=== PATIENT | male | born 1975 | race Caucasian/White ===

== ENCOUNTER 2017-02-12 12:31 | Day surgery (SDC) | payer OTHER ==
[2017-02-12] MEDS ORDERED: Bupivacaine 0.25% 10 ML SDV ONE (13:01)
[2017-02-12] MEDS ORDERED: Propofol 200 MG/20 ML SDV ONE (13:24)
[2017-02-12] MEDS ORDERED: Midazolam 1 MG/ML 2 ML SDV ONE (13:24)
[2017-02-12] MEDS ORDERED: fentaNYL 100 MCG/2 ML SDV ONE (13:24)
--- NOTE | 2017-02-12 13:28 | PCM.PREANE ---
Preanesthetic Assessment - Anesthesia/Transfusion/Family Hx Anesthesia History: Prior Anesthesia Without Reaction Family History of Anesthesia Reaction: No Transfusion History: No Prior Transfusion(s) - Review of Systems General: No Symptoms Pulmonary: No Symptoms Cardiovascular: No Symptoms Gastrointestinal: No Symptoms Neurological: No Symptoms Other: Reports: None - Physical Assessment NPO Status Date: 02/12/17 NPO Status Time: 05:30 O2 Sat by Pulse Oximetry: 100 Respiratory Rate: 16 Vital Signs: Last Vital Signs Temp 36.4 C 02/12/17 12:44 Pulse 64 02/12/17 12:44 Resp 16 02/12/17 12:44 BP 136/71 02/12/17 12:44 Pulse Ox 100 02/12/17 12:44 Height: 1.79 m Weight: 80.739 kg ASA Class: 2 Mental Status: Alert & Oriented x3 Dentition: Reports: Dentures (full uper) ROM/Head Extension: Full Lungs: Clear to Auscultation, Normal Respiratory Effort Cardiovascular: Regular Rate, Regular Rhythm - Allergies Allergies/Adverse Reactions: Allergies Allergy/AdvReac Type Severity Reaction Status Date / Time No Known Allergies Allergy Verified 02/12/17 10:52 - Anesthesia Plan Pre-Op Medication Ordered: None - Acknowledgements Anesthesia Type Planned: General Anesthesia Pt an Appropriate Candidate for the Planned Anesthesia: Yes Alternatives and Risks of Anesthesia Discussed w Pt/Guardian: Yes Pt/Guardian Understands and Agrees with Anesthesia Plan: Yes PreAnesthesia Questionnaire HEENT History: Reports: Hard of Hearing, Other (See Below) Other HEENT History: has upper denture, hard of hearing in left ear Musculoskeletal History: Reports: Fracture Other Musculoskeletal History: hx of fx left knee and wrist - Past Surgical History Musculoskeletal Surgical History: Reports: Other (See Below) Other Musculoskeletal Surgeries/Procedures:: knee surgery (no hardware) - SUBSTANCE USE Smoking Status *Q: Current Every Day Smoker Tobacco Use Within Last Twelve Months: Cigarettes Recreational Drug Use History: No - HOME MEDS Home Medications: Home Meds Hydrocodone/Acetaminophen [[place] 5-325] 1 tab PO Q4H PRN 02/12/17 [History] - CURRENT (IN HOUSE) MEDS Current Meds: Current Medications Discontinued Medications Bupivacaine HCl (Sensorcaine-Mpf 0.25%) Confirm Administered Dose 20 ml .ROUTE .STK-MED ONE Stop: 02/12/17 13:02 Fentanyl (Sublimaze) Confirm Administered Dose 100 mcg .ROUTE .STK-MED ONE Stop: 02/12/17 13:25 Midazolam HCl (Versed 1 Mg/Ml) Confirm Administered Dose 2 mg .ROUTE .STK-MED ONE Stop: 02/12/17 13:25 Propofol (Diprivan 20 Ml) Confirm Administered Dose 200 mg .ROUTE .STK-MED ONE Stop: 02/12/17 13:25
[2017-02-12] MEDS ORDERED: Rocuronium 10 MG/ML 10 ML Syringe ONE (13:43)
[2017-02-12] MEDS ORDERED: Succinylcholine/Normal Saline 200 MG/10 ML Syringe ONE (13:43)
[2017-02-12] MEDS ORDERED: Dexamethasone 4 MG/ML 5 ML MDV ONE (13:54)
[2017-02-12] MEDS ORDERED: Ondansetron 4 MG/2 ML SDV ONE (13:54)
[2017-02-12] MEDS ORDERED: fentaNYL 100 MCG/2 ML SDV IVPUSH PRN (14:28)
--- NOTE | 2017-02-12 15:50 | PCM.POSTAN ---
POST ANESTHESIA ASSESSMENT - MENTAL STATUS Mental Status: Alert - VITAL SIGNS Pulse Rate: 72 SaO2: 97 Resp Rate: 16 Blood Pressure: 134/72 - RESPIRATORY Respiratory Status: Respiratory Rate WNL, Airway Patent, O2 Saturation Stable - CARDIOVASCULAR CV Status: Pulse Rate WNL, Blood Pressure Stable - GASTROINTESTINAL GI Status: No Symptoms - PAIN Pain Score: 2 - POST OP HYDRATION Hydration Status: Adequate & Stable
--- NOTE | 2017-02-12 16:15 | PCM48HPAN ---
Post Anesthesia Note - EVALUATION WITHIN 48HRS OF ANESTHETIC Vital Signs in Normal Range: Yes Patient Participated in Evaluation: Yes Respiratory Function Stable: Yes Airway Patent: Yes Cardiovascular Function Stable: Yes Hydration Status Stable: Yes Pain Control Satisfactory: Yes Nausea and Vomiting Control Satisfactory: Yes Mental Status Recovered: Yes
[2017-02-13] MEDS ORDERED: ceFAZolin 2 GM in Premix Bag 1 BAG IV ONE (09:50)
--- NOTE | 2017-02-15 09:54 | PCM.OPNOTE ---
- General Post-Op/Procedure Note Date of Surgery/Procedure: 02/12/17 Operative Procedure(s): open reduction internal fixation of the right index finger middle phalanx fracture Pre Op Diagnosis: right index finger middle phalanx fracture Post-Op Diagnosis: Same Anesthesia Technique: General LMA, Local Primary Surgeon: Ragini Garcia Buttermaker Continuous Churn: Clarita Pineda Complications: None Condition: Good
--- NOTE | 2017-02-15 17:04 | OR ---
SURGEON: BRIANNA HYATT MD DATE OF PROCEDURE: 02/12/2017 PREOPERATIVE DIAGNOSIS: Right index finger middle phalanx fracture, open. POSTOPERATIVE DIAGNOSIS: Right index finger middle phalanx fracture, open. PROCEDURE: Open reduction and internal fixation of the right index finger middle phalanx fracture. GAMES MANAGER: JUAN PABLO Mitchell. Reason for real estate assistant was assistance with finger retraction. ANESTHESIA: General LMA with local. INDICATIONS: Mr. Arriaga is a 42-year-old gentleman who unfortunately had an open middle phalanx fracture of the right index finger. He was seen at [facility] and unfortunately sent to Orthopedics and outpatient evaluation. We discussed the importance of treatment of open fractures within 6 hours of the injury. Risks and benefits of pin fixation were discussed with him. It does meet appropriate fixation and we discussed that has not changed even with the delay. I do think it is better to go and wash this out even in a delayed fashion, though we would have preferred to do it within a reasonable time frame. Risks of infection are increased and he understands this. He has been on [id number] the injury. We will give a preoperative dose of Ancef for increased gram positive coverage. Risks were including, but not limited to, bleeding, infection, damage to underlying or overlying structures, possible need for future interventions, and possible scarring. He understands that he will likely need some therapy after this in order to get back to normal range of motion. It is also possible that there is tendon involvement. He understands and would like to proceed. PROCEDURE IN DETAIL: After informed consent was obtained and placed on the chart, the patient was brought to the operating theater and laid in the supine position. After adequate general LMA anesthesia was obtained, the area was prepped and draped and a time-out was completed to confirm side and site. Attention was then paid to removal of the previously placed sutures and reduction of the fracture which was confirmed with fluoroscopy. Two 0.45 and a single 0.35 K-wire were placed in a crossed fashion over the fracture segment. Once adequately placed, attention was then paid to copious irrigation again as it had been done upon initial opening. Once adequately irrigated and the K-wires were holding fixation, the extensor tendon was reapproximated over midline. It was significantly damaged with only one small fiber intact. This was repaired as best as possible using a 4-0 Ethibond suture. Once adequately repaired, the skin was closed using a 5-0 nylon stitch in a horizontal mattress running fashion. The wound was dressed with Xeroform fluffs and a Kerlix gauze dressing, a short-arm splint. The patient tolerated the procedure well, and all counts and needles were correct at the end of the case. Tourniquet was deflated at the end of the case. FOLLOWUP INSTRUCTIONS: The patient will see us in approximately 1 week, sooner if any problems, questions, or concerns. We will get him to occupational therapy at that time for appropriate splint custom, and we will recheck him sooner if any problems, questions, or concerns. He will be maintained on the Cipro and watch closely for any signs of infection as discussed. He was also given a prescription for pain control. HEGGTHE / ALYCIA /[id number] RAFAEL
== END 2017-02-12 16:19 | disposition home or self-care (01) ==
LOC: MW.SDS 12:31
PROVIDERS: ATTEND Plastic Surgery
DX: S62.620B Displaced fracture of middle phalanx of right index finger, initial encounter for open fracture (principal); F17.210 Nicotine dependence, cigarettes, uncomplicated
CPT/HCPCS: 26735; 73130; J1100; J2250; J2405; J3010; 01810; J2704